=== PATIENT | female | born 1975 | race Caucasian/White ===

== ENCOUNTER 2017-12-14 08:39 | Outpatient (CLI) | payer OTHER | END 2017-12-14 08:40 | disposition home or self-care (01) | LOC: BICMAMMO 08:39 | PROVIDERS: ATTEND Family Medicine | DX: Z12.31 Encounter for screening mammogram for malignant neoplasm of breast (principal) | CPT/HCPCS: 77063; 77067 ==

== ENCOUNTER 2018-05-30 12:44 | Outpatient (CLI) | payer OTHER | END 2018-05-30 12:45 | disposition home or self-care (01) | PROVIDERS: ATTEND Family Medicine | DX: R00.2 Palpitations (principal) | CPT/HCPCS: 93225; 93226 ==

== ENCOUNTER 2019-11-12 13:40 | Inpatient (IN) | payer OTHER ==
[2019-11-12] MEDS ORDERED: Acetaminophen 500 MG TAB ONE (15:24)
[2019-11-12] MEDS ORDERED: Metoclopramide HCl 10 MG/2 ML VIAL ONE (15:24)
[2019-11-12] MEDS ORDERED: Magnesium 2 GM/50 ML BAG (IN WATER) ONE (15:24)
[2019-11-12] MEDS ORDERED: diphenhydrAMINE 25 MG CAP ONE (15:24)
[2019-11-12] MEDS ORDERED: diphenhydrAMINE 50 MG/ML VIAL ONE (15:26)
--- NOTE | 2019-11-12 15:47 | CT ---
CT HEAD WITHOUT IV CONTRAST COMPARISON: None HISTORY: Head pain. Covid positive. Patient states dizziness and body aches. TECHNIQUE: Axial CT imaging at 5 mm intervals from vertex through skull base without contrast FINDINGS: There is no evidence of an acute infarction, hemorrhage, mass effect, or midline shift. The ventricul ar system is normal in size, shape, and position. Visualized paranasal sinuses are clear. Osseous structures appear intact. IMPRESSION: 1. No acute intracranial abnormality demonstrated.
[2019-11-12 16:03] LABS: #Eosinphils 0.2 thou/uL (0.0-0.7); #Lymphocytes 1.4 thou/uL (1.20-3.40); #Monocytes 0.4 thou/uL (0.11-0.59); #Neutrophils 3.3 thou/uL (1.40-6.50); %Basophils 0.8 % (0.0-1.0); %Eosinophils 3.8 % (0.0-10.0); %Lymphocytes 26.9 % (21.0-51.0); %Monocytes 6.9 % (0.0-10.0); %Neutrophils 61.6 % (42.0-75.0); Hemoglobin 13.4 g/dL (12.0-16.0); Mean Corpuscular HGB CONC 33.3 g/dL (32.0-36.0); Mean Corpuscular Hemoglobin 29.4 pg (27.0-31.0); Mean Corpuscular Volume 88.3 fL (78.0-98.0); Mean Platelet Volume 12.2 fL (7.4-10.4); Platelet Count 23 thou/uL (130-400); RBC Distribution Width 12.1 % (11.5-14.5); Red Blood Cell (RBC) Count 4.56 mill/uL (4.20-5.40); White Blood Cell (WBC) Count 5.3 thou/uL (4.8-10.8)
[2019-11-12 16:07] LABS: INR-International Normal Ratio 0.9; PTT 29.4 sec (22.9-36.1); Prothrombin Time 12.3 sec (12.0-14.7)
[2019-11-12 16:19] LABS: ALT (SGPT) 33 U/L (8-55); AST (SGOT) 28 U/L (5-34); Albumin 4.3 g/dL (3.5-5.0); Alkaline Phosphatase 81 U/L (40-110); Anion Gap 10 mmol/L (10-20); BUN (Urea Nitrogen) 11 mg/dL (7.0-18.7); Bilirubin, Total 0.5 mg/dL (0.2-1.2); CRP (Inflammatory) 0.95 mg/dL (= or < 0.5); Calc. Creatinine Clearance 0 mL/min (70-130); Calcium 9.2 mg/dL (7.8-10.44); Carbon Dioxide 26 mmol/L (22-29); Chloride 107 mmol/L (98-107); Estimated GFR-MDRD 87; Globulin 2.6 g/dL (2.4-3.5); Glucose 92 mg/dL (70-105); Potassium 3.8 mmol/L (3.5-5.1); Protein, Total 6.9 g/dL (6.0-8.3); Sodium 139 mmol/L (136-145)
[2019-11-12 16:20] LABS: BHCG - Serum Negative (NEGATIVE); Pregs Control Background? CLEAR/WHITE (CLR/WHITE); Pregs Control Bar Appear? YES (CONTROL BAR)
[2019-11-12] MEDS ORDERED: Senokot S 8.6-50 MG TAB PO PRN (17:06)
--- NOTE | 2019-11-12 17:41 | RAD ---
Exam: Chest one view HISTORY:COVID. Evaluate for infiltrate. Comparison: None FINDINGS: Cardiac silhouette: Normal Aorta: Unremarkable Pulmonary vessels: Normal Costophrenic angles: Clear LUNGS: No masses or consolidation. Pneumothorax: None Osseous abnormalities: None IMPRESSION: No acute cardiopulmonary process.
[2019-11-12] MEDS ORDERED: Albuterol Sulfate 2.5 mg/3 ml Neb NEB PRN (18:21)
[2019-11-12] MEDS ORDERED: Benzonatate 100 MG CAP PO PRN (18:22)
--- NOTE | 2019-11-12 18:56 | HP ---
CHIEF COMPLAINT: Easy bruising and diarrhea. HISTORY OF PRESENT ILLNESS: A 44-year-old female, with a history of asthma and COVID positive on October 17 and recovering from it, noted to have easy bruising as well as several ecchymoses in her extremities without any petechial rash. With history of asthma , she does not use inhalers usually, but due to COVID infection, she was using on a daily basis albuterol as well as Atrovent. Her platelets were 23,000 here. It appears that we do not have a previous baseline platelets. She is also complaining of headache. CT head is negative. Chest x-ray, no acute cardiopulmonary process. Her CRP is elevated. The patient is admitted due to concern for risk for bleed, given the low platelet and possible COVID viral suppression of the platelets. She did not have any fever, night sweats, or chills during this interim; however, she did have some flank pain on the right side as well as hip pain. She did not have any dysuria, hematuria, or hematochezia. 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 REVIEW OF SYSTEMS: A 13-point review of systems reviewed. Pertinents addressed in the history of present illness. Rest is negative. ALLERGIES: SHE IS ALLERGIC TO AZITHROMYCIN. PAST MEDICAL HISTORY: Asthma. SURGICAL HISTORY: None. SOCIAL HISTORY: Does not drink or smoke. She lives with her spouse and works here at [employer]. MEDICATIONS: Not updated yet, but it appears she uses inhalers. PHYSICAL EXAMINATION: VITAL SIGNS: Not recorded yet. GENERAL: I have seen the patient. She appears well. I have examined her torso as well as extremities. She has left upper arm medial side 2 cm ecchymosis. On the right leg, she has several bruises, skin discoloration noted. HEENT: Pupils are equal, round, and reactive to light. Anicteric. CARDIOVASCULAR: Regular rate and rhythm without murmurs. Complete exam not performed due to COVID nature. NEUROLOGIC: She has no neurological deficits. PSYCHIATRIC: Appropriate mood and affect. LABORATORY DATA: CBC; platelets of 23, and hemoglobin 13.4, and WBC 5.3. Chemistry, CMP panel in the normal range. CRP is 0.95. D-dimer 0.27. INR 0.9. IMPRESSION AND PLAN: This is a 44-year-old female with recent COVID pneumonia, presenting with; 1. Severe thrombocytopenia. 2. Ecchymosis and easy bruising related to thrombocytopenia. 3. Asthma. 4. Recent COVID pneumonia The patient will be admitted for observation. We will follow the platelet counts. I have requested the Hematology consult. I believe this thrombocytopenia is probably due to viral suppression. Unclear whether she would benefit with IV steroid at this point. We will follow the clinical course. She does not have any petechiae in palate or torso. She does not notice any darin bleed in the urine or stools. We will swab her again for COVID. She may be re-infected versus other. Mainly supportive management for now. Avoid deep venous thrombosis prophylaxis with chemical anticoagulants. Job ID: [id number] MTDD
[2019-11-12] MEDS: Famotidine 20 MG TAB PO SCH (19:40)
[2019-11-12 19:42] LABS: Ferritin 110.42 ng/mL (10-291); Thyroid Stimulating Hormone 2.3807 uIU/mL (0.35-4.94)
[2019-11-12 20:04] VITALS: BMI 37.5
[2019-11-12] MEDS: Acetaminophen 325 MG TAB PO PRN (20:30)
[2019-11-12] MEDS ORDERED: SALMETEROL INH SCH (21:00)
[2019-11-12] MEDS ORDERED: FLUTICASONE INH SCH (21:00)
[2019-11-13] MEDS ORDERED: Mometasone 200 MCG/Formoterol 5 MCG 120 PUFF INHALER INH SCH (00:15)
[2019-11-13] MEDS: Mometasone 200 MCG/Formoterol 5 MCG 120 PUFF INHALER INH SCH ×2 (06:29→18:30)
[2019-11-13] MEDS: Acetaminophen 325 MG TAB PO PRN ×4 (06:29→20:57)
[2019-11-13 06:32] LABS: #Basophils 0.1 thou/uL (0.0-0.2); #Eosinphils 0.2 thou/uL (0.0-0.7); #Lymphocytes 1.7 thou/uL (1.20-3.40); #Monocytes 0.3 thou/uL (0.11-0.59); %Basophils 1.4 % (0.0-1.0); %Eosinophils 5.4 % (0.0-10.0); %Lymphocytes 38.9 % (21.0-51.0); %Monocytes 7.7 % (0.0-10.0); %Neutrophils 46.7 % (42.0-75.0); Hemoglobin 12.4 g/dL (12.0-16.0); Mean Corpuscular HGB CONC 32.2 g/dL (32.0-36.0); Mean Corpuscular Hemoglobin 28.6 pg (27.0-31.0); Mean Corpuscular Volume 88.7 fL (78.0-98.0); Mean Platelet Volume 10.9 fL (7.4-10.4); Platelet Count 35 thou/uL (130-400); RBC Distribution Width 12.3 % (11.5-14.5); Red Blood Cell (RBC) Count 4.34 mill/uL (4.20-5.40); White Blood Cell (WBC) Count 4.3 thou/uL (4.8-10.8)
[2019-11-13 06:47] LABS: Anion Gap 14 mmol/L (10-20); BUN (Urea Nitrogen) 13 mg/dL (7.0-18.7); Calc. Creatinine Clearance 186 mL/min (70-130); Carbon Dioxide 24 mmol/L (22-29); Chloride 108 mmol/L (98-107); Estimated GFR-MDRD Greater than 90; Glucose 87 mg/dL (70-105); Sodium 142 mmol/L (136-145)
[2019-11-13] MEDS: Famotidine 20 MG TAB PO SCH ×2 (07:56→20:47)
[2019-11-13 12:21] LABS: SARS-CoV-2 MS2 Positive; SARS-CoV-2 N Gene Positive; SARS-CoV-2 S Gene Positive; SARS-CoV-2 by NAA DETECTED (NotDetected); SARS-CoV-2 orf1ab Positive
--- NOTE | 2019-11-13 13:11 | PDOC.HOSPP ---
- Subjective Encounter Date: 11/13/19 Encounter Time: 10:50 Subjective: Patient feels that her bruises/ecchymosis are remained the same not worsening. her platelet count improved to 35,000. Hematology consult pending. Her COVID test came back positive. No noticeable blood in the urine or stool. She is satting well and ambulating without any respiratory distress. - Objective Vital Signs & Weight: Vital Signs (12 hours) Temp Pulse Resp BP Pulse Ox 11/13/19 11:52 97.1 F L 71 18 136/83 98 11/13/19 08:00 98.4 F 66 18 124/82 96 11/13/19 04:00 97.9 F 64 18 116/72 100 Weight Weight 233 lb 0.458 oz I&O: 11/12/19 11/13/19 11/14/19 06:59 06:59 06:59 Intake Total 400 Balance 400 Result Diagrams: 11/13/19 05:51 11/13/19 05:51 Hospitalist ROS - Medication Medications: Active Medications Generic Name Dose Route Start Last Admin Trade Name Freq PRN Reason Stop Dose Admin Acetaminophen 650 mg 11/12/19 17:06 11/13/19 11:18 Tylenol PO 650 mg Q4H PRN Administration Headache/Fever/Mild Pain (1-3) Famotidine 20 mg 11/12/19 21:00 11/13/19 07:56 Pepcid PO 20 mg BID MARIE Administration Mometasone Furoate/Formoterol Fumar 2 puff 11/13/19 06:30 11/13/19 06:29 Dulera 200 Mcg/5 Mcg Inhaler INH 2 puff BID-RT MARIE Administration - Exam General Appearance: NAD, awake alert Eye: PERRL, anicteric sclera ENT: normocephalic atraumatic Neck: supple Neurological: no focal deficits Psychiatric: normal affect, normal behavior, A&O x 3 Hosp A/P - Plan COVID-19 positive test (U07.1, COVID-19) with Acute Pneumonia (J12.89, Other viral pneumonia) (If respiratory failure or sepsis present, add as separate assessment) Foster test positive on October 17 Second test positive on November 12 -Clinically she is stable.- Satting 98% in the room air. Severe thrombocytopenia probably due to viral suppression - Defer putting her on steroid until hematology evaluate her. Additionally her platelets counts are improving without intervention. - her platelet count improved to 35,000. Hematology consult pending. Her COVID test came back positive. - No noticeable blood in the urine or stool. She is satting well and ambulating without any respiratory distress.
[2019-11-13 16:16] LABS: #Eosinphils 0.2 thou/uL (0.0-0.7); #Lymphocytes 1.6 thou/uL (1.20-3.40); #Monocytes 0.4 thou/uL (0.11-0.59); #Neutrophils 2.8 thou/uL (1.40-6.50); %Basophils 0.3 % (0.0-1.0); %Eosinophils 4.8 % (0.0-10.0); %Monocytes 7.6 % (0.0-10.0); %Neutrophils 55.2 % (42.0-75.0); Hemoglobin 13.4 g/dL (12.0-16.0); Mean Corpuscular HGB CONC 33.9 g/dL (32.0-36.0); Mean Corpuscular Volume 88.7 fL (78.0-98.0); Mean Platelet Volume 10.2 fL (7.4-10.4); Platelet Count 44 thou/uL (130-400); RBC Distribution Width 12.2 % (11.5-14.5); Red Blood Cell (RBC) Count 4.44 mill/uL (4.20-5.40)
[2019-11-13] MEDS ORDERED: Dexamethasone 4 MG TAB PO SCH (18:00)
--- NOTE | 2019-11-13 22:08 | CON ---
DATE OF CONSULTATION: REASON FOR CONSULT: Thrombocytopenia. HISTORY OF PRESENT ILLNESS: Ms. Frazier is a pleasant 44-year-old female, who works for [employer]. She was tested positive for COVID-19 on October 15. She was having fever, headaches, and cough. She has been recovering over the past month, but noted to have bruising and ecchymosis on her extremities several days ago. The patient had a CBC drawn, which showed a platelet count of 19,000. She was instructed to go to the emergency room for further workup. She denied any hemoptysis, hematuria, hematochezia, melena, or epistaxis. She has recovered clinically from her infection and only has occasional headaches. On arrival to the ER, a repeat CBC showed a white count of 5.3, hemoglobin of 13.4, and a platelet count of 23,000. Her C-reactive protein was slightly high at 1.07. Her repeat COVID test was positive. We were asked to see the patient regarding her thrombocytopenia. PAST MEDICAL HISTORY: 1. Asthma. 2. COVID-19 positive in September 2019. PAST SURGICAL HISTORY: None. ALLERGIES: PENICILLIN, ZITHROMAX, AND SULFA MEDICATIONS. HOME MEDICATIONS: 1. Zoloft 50 mg daily. 2. Inhaler. FAMILY HISTORY: Noncontributory. 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 No alcohol, tobacco, or illicit drug use. REVIEW OF SYSTEMS: A 10-point review of systems is negative except for noted in HPI. PHYSICAL EXAMINATION: VITAL SIGNS: Temperature 97.1, pulse is 71, respiratory rate 18, BP is 136/83. She is 98% on room air. GENERAL: Well developed, well nourished. RESPIRATORY: Respirations are nonlabored. NEUROLOGICAL: She is intact. PERTINENT LABS AND X-RAYS: Current WBCs are 4.3, hemoglobin 12.4, hematocrit 38.5, platelet count is 35,000, 46% neutrophils, 38% lymphocytes. PT is 12.3, INR 0.9 , and PTT is 29.4. D-dimer is less than 0.27. Sodium 142, potassium 4.0, chloride 108, CO2 is 24, BUN is 13, creatinine 0.63, calcium 9, ferritin 110, bilirubin 0.5. AST is 28, ALT is 33, alkaline phosphatase is 81. Serum total protein is 6.9, albumin 4.3, globulin 2.6. TSH normal. negative. Urine showed 1+ bacteria. COVID-[address] is detected[address] Brain CT was negative for acute process. The brain CT and chest x-ray were negative. ASSESSMENT: 1. Acute thrombocytopenia. 2. COVID-19 positive. DISCUSSION: The case has been discussed with Dr. Alexander. The patient has had COVID virus for almost 30 days. Although she has clinically improved, she tests positive. Although rare, her thrombocytopenia is likely from viral suppression. There is no evidence of ITP. Her platelets have improved without any intervention. Recommend continue to trend and recheck in the a.m. She denies any bleeding and can likely go home tomorrow if platelets are stable or improved. She will need a followup CBC in the next several days. This was discussed with the patient via telephone, who stated understanding. Thank you for the consult. Job ID: [id number] MTDD
[2019-11-14] MEDS ORDERED: Dexamethasone 4 MG TAB PO SCH (08:00)
[2019-11-14] MEDS: Acetaminophen 325 MG TAB PO PRN (08:58)
[2019-11-14] MEDS ORDERED: Ascorbic Acid 500 mg Chewable Tablet PO SCH (09:00)
[2019-11-14] MEDS ORDERED: Zinc Sulfate 220 MG CAP PO SCH (09:00)
--- NOTE | 2019-11-14 09:23 | PDOC.MOPN ---
Interval History: still has headache and body aches, denies any bleeding, petechiae - Vital Signs Vital Signs: Vital Signs (12 hours) Temp Pulse Resp BP Pulse Ox 11/14/19 00:00 97.8 F 68 18 118/64 100 Weight Weight 233 lb 0.458 oz - Physical Exam General: Alert, Oriented x3, No acute distress Neurological: Normal speech Psych/Mental Status: Mental status NL - Labs Result Diagrams: 11/14/19 10:40 11/13/19 05:51 Lab results: Laboratory Results - last 24 hr 11/13/19 16:02: WBC 5.0, RBC 4.44, Hgb 13.4, Hct 39.4, MCV 88.7, MCH 30.0, MCHC 33.9, RDW 12.2, Plt Count 44 L, MPV 10.2, Neutrophils % 55.2, Neutrophils % ( Manual) Not Reportable, Lymphocytes % 32.0, Monocytes % 7.6, Eosinophils % 4.8, Basophils % 0.3, Neutrophils # 2.8, Lymphocytes # 1.6, Monocytes # 0.4, Eosinophils # 0.2, Basophils # 0.0 11/12/19 17:54: COVID-19 PCR DETECTED A* Status: lab reviewed by me A/P - Problem (1) Thrombocytopenia Code(s): D69.6 - THROMBOCYTOPENIA, UNSPECIFIED Status: Acute - Plan Plan: low platelets likely due to viral suppression. Have improved with no intervention and are currently 77,000 Ok to ar home. CBC on Tuesday
[2019-11-14] MEDS: Famotidine 20 MG TAB PO SCH (09:27)
[2019-11-14 11:02] LABS: #Lymphocytes 0.9 thou/uL (1.20-3.40); #Monocytes 0.4 thou/uL (0.11-0.59); #Neutrophils 7.7 thou/uL (1.40-6.50); %Basophils 0.1 % (0.0-1.0); %Eosinophils 0.2 % (0.0-10.0); %Lymphocytes 10.3 % (21.0-51.0); %Monocytes 4.3 % (0.0-10.0); %Neutrophils 85.1 % (42.0-75.0); Hemoglobin 14.3 g/dL (12.0-16.0); Mean Corpuscular HGB CONC 33.7 g/dL (32.0-36.0); Mean Corpuscular Hemoglobin 29.6 pg (27.0-31.0); Platelet Count 73 thou/uL (130-400); RBC Distribution Width 12.1 % (11.5-14.5); Red Blood Cell (RBC) Count 4.83 mill/uL (4.20-5.40); White Blood Cell (WBC) Count 9.1 thou/uL (4.8-10.8)
[2019-11-14] MEDS: Mometasone 200 MCG/Formoterol 5 MCG 120 PUFF INHALER INH SCH (14:22)
[2019-11-14 15:16] VITALS: BP 129/83; TEMP 97.5
--- NOTE | 2019-11-14 17:10 | DIS ---
DATE OF ADMISSION: 11/12/2019 DATE OF DISCHARGE: 11/14/2019 DISCHARGE DIAGNOSES: 1. Acute thrombocytopenia. 2. COVID positive. 3. Idiopathic thrombocytopenic purpura is ruled out. Platelets improved from initial count of 23,000 to 73,000 prior to discharge without any intervention. 4. Repeat COVID positive. DISCHARGE MEDICATIONS: 1. Decadron 6 mg daily for 10 days. 2. Tessalon Perles as needed. 3. Tramadol 50 mg every 6 hours as needed for pain. 4. Zoloft 50 mg at bedtime. 5. Fluticasone/salmeterol one puff twice a day. PHYSICAL EXAMINATION: VITAL SIGNS: On the day of discharge, temperature 98, pulse 86, blood pressure 127/79, and saturating 96% on room air. GENERAL: The patient is alert and oriented. I have seen her, she appears well , she is ambulating without any shortness of breath. She still has some mild dizziness, but getting better, still has some body ache. Tylenol helped only a little, so Ultram is prescribed upon discharge. Otherwise, she appears well to be discharged home today. HOSPITAL COURSE: This is a 44-year-old female with a history of asthma, COVID positive on October 17 and is recovering from it, admitted due to thrombocytopenia with a platelet count of 23,000 along with ecchymosis and bruises on her extremities with concern for bleed and worsening platelets. Supportive Care followed. She did not have any gum bleeding or hematuria or hematochezia during her stay. Her ecchymosis seems to be resolving. No new skin rash. No petechial rashes noted. Her platelets improved to 73,000 without any intervention. We believed that is probably due to viral suppression. Repeat COVID is positive on November 06 with the previous positive on October 17. In this regard , she has been prescribed Decadron. She is allergic to Zithromax. Leave of absence given until November 18. If she is still symptomatic with dizziness and generalized body ache, she can contact her primary care physician for extension of the leave of absence. She is clinically stable enough to go home today. DISCHARGE INSTRUCTIONS: Activity as tolerated. Regular diet. Follow up with the PCP in 2 to [address] Toño blake in 2 to 3 weeks, as needed to follow up on thrombocytopenia. Discharge time took over 35 minutes. Job ID: [id number] MTDD
--- NOTE | 2019-11-15 08:39 | PQF ---
CLINICAL DOCUMENTATION CLARIFICATION FORM: Dear : Adrian Dacosta Date / Time: 11/15/19 0838 Please exercise your independent, professional judgment in responding to the clarification form. Clinical indicators are provided on the bottom of this form for your review Please check appropriate box(es) to clarify if the following diagnosis has been ruled in our ruled out: Pneumonia [ ] Ruled in diagnosis [ x ] Continue to treat [ ] Resolved [ ] Ruled out diagnosis [ ] Improving [ ] Cannot rule out diagnosis [ ] Other diagnosis [ ] Unable to determine Physician Signature: Date/Time: For continuity of documentation, please document condition throughout progress notes and discharge summary. Thank You. To be completed by CDI/Coding staff for physician review: Present Clinical Indicators - Signs / Symptoms / Labs Results and Location in Medical Record [ X] [id number]: Positive Serology 11/11 [ X] BP124/78, Pulse 69, Resp 18, Temp 98.2 Vital signs 11/11 [ X] Chest X-ray Impression: : Lungs: No masses or consolidation, No acute cardiopulmonary process Imaging Dr Julian 11/11 [ X] Covid 19 positive test with acute pneumonia HPN p3 11/12 Dr Dacosta [ X] She is satting well and ambulating without any respiratory distress HPN p3 11/12 Dr Dacosta [ X] WBC: 11/11=5.3 11/12=4.3 11/13=9.1 Labs 11/11 Present Risk Factors Results and Location in Medical Record [ X] Asthma H&P p1 11/11 Dr Dacosta [ X] Covid Infection H&P p1 11/11 Dr Dacosta Present Treatments Results and Location in Medical Record [ X] Dulera 200 mcg/5mcg inhler MAR 11/12 [ X] Decadron 6 mg oral JUN 22 [ X] [id number] Serology 11/11 [ X] Chest X-ray Imaging Dr Julian 11/11 [facility] Developer Signature: Nan Ríos Phone #: [phone] Date/Time: 11/15/19 0844 This is a permanent part of the Medical Record [facility]
== END 2019-11-14 15:06 | disposition home or self-care (01) | DRG 177 ==
LOC: ERS 13:40 → T4-B 16:57
PROVIDERS: ADMIT Internal Medicine; ATTEND Internal Medicine
PROC: 8E0ZXY6 Isolation (ICD-10-PCS; principal; 2019-11-12)
DX: U07.1 COVID-19 (principal); J12.89 Other viral pneumonia; J45.909 Unspecified asthma, uncomplicated; D69.6 Thrombocytopenia, unspecified; Z88.1 Allergy status to other antibiotic agents; Z88.0 Allergy status to penicillin; Z88.2 Allergy status to sulfonamides; Z79.899 Other long term (current) drug therapy; Z79.51 Long term (current) use of inhaled steroids
CPT/HCPCS: 36415; 70450; 71045; 80048; 80053; 81001; 82550; 82728; 83735; 84443; 84703; 85025; 85060; 85379; 85610; 85652; 85730; 86140; 87635; 96365; 96368; 96375; J1200; J2765; J3475; J8540; Q0163; U0003

== ENCOUNTER 2021-08-28 16:00 | Outpatient (CLI) | payer BC | END 2021-08-28 16:01 | disposition home or self-care (01) | LOC: BICMAMMO 16:00 | PROVIDERS: ATTEND Family Medicine | DX: Z12.31 Encounter for screening mammogram for malignant neoplasm of breast (principal); Z80.3 Family history of malignant neoplasm of breast | CPT/HCPCS: 77063; 77067 ==

== ENCOUNTER 2021-10-29 17:30 | Outpatient (CLI) | payer BC | END 2021-10-29 17:31 | disposition home or self-care (01) | LOC: SLEEPLAB 17:30 | PROVIDERS: ATTEND Family Medicine | DX: G47.33 Obstructive sleep apnea (adult) (pediatric) (principal); R53.83 Other fatigue; R40.0 Somnolence; R51.9 Headache, unspecified; F41.8 Other specified anxiety disorders; K21.9 Gastro-esophageal reflux disease without esophagitis; E66.9 Obesity, unspecified; R06.83 Snoring; G47.00 Insomnia, unspecified; Z68.41 Body mass index [BMI] 40.0-44.9, adult | CPT/HCPCS: 95800 ==

== ENCOUNTER 2023-09-21 15:04 | Outpatient (CLI) | payer BC | END 2023-09-21 15:05 | disposition home or self-care (01) | LOC: BICMAMMO 15:04 | PROVIDERS: ATTEND Internal Medicine | DX: Z12.31 Encounter for screening mammogram for malignant neoplasm of breast (principal); Z80.3 Family history of malignant neoplasm of breast | CPT/HCPCS: 77063; 77067 ==